=== PATIENT | female | born 1990 ===

== ENCOUNTER 2016-11-09 19:29 | Inpatient (IN) | payer OTHER ==
[2016-11-09 19:29] VITALS: BMI 28.6
[2016-11-09] MEDS ORDERED: Sodium Chloride 0.9% 1,000 ML IV ONE (20:26)
--- NOTE | 2016-11-09 20:28 | C.PDOC ---
History Of Present Illness 26 year old female with a Hx of sickle cell sent from [facility] for abnormal blood test results. Patient reports having mild generalized pain; denies fever, chills, nausea, or vomiting. Chief Complaint (Nursing): Medical Clearance History Per: Patient History/Exam Limitations: no limitations Onset/Duration Of Symptoms: Hrs Current Symptoms Are (Timing): Still Present Recent travel outside of the [place]: No Past Medical History Reviewed: Historical Data, Nursing Documentation, Vital Signs Vital Signs: Last Vital Signs Temp 99 F 11/09/16 19:42 Pulse 92 H 11/09/16 19:42 Resp 20 11/09/16 19:42 BP 106/66 11/09/16 19:42 Pulse Ox 96 11/09/16 22:46 - Medical History PMH: Anemia, Asthma, Diabetes, Sickle Cell Disease Surgical History: Cholecystectomy Family History: States: Unknown Family Hx - Social History Hx Tobacco Use: No Hx Alcohol Use: No Hx Substance Use: No - Immunization History Hx Tetanus Toxoid Vaccination: No Hx Influenza Vaccination: No Hx Pneumococcal Vaccination: No Review Of Systems Constitutional: Negative for: Fever, Chills Gastrointestinal: Negative for: Nausea, Vomiting Musculoskeletal: Positive for: Other (Mild generalized pain) Physical Exam - Physical Exam Appears: Non-toxic, No Acute Distress Skin: Warm, Dry, Jaundice (Slightly) Head: Atraumatic, Normacephalic Eye(s): bilateral: Conjunctiva Pale Oral Mucosa: Moist Neck: Normal, Supple Chest: Symmetrical, No Tenderness Cardiovascular: Rhythm Regular, No Murmur Respiratory: Normal Breath Sounds, No Rales, No Rhonchi, No Wheezing Gastrointestinal/Abdominal: Soft, No Tenderness Neurological/Psych: Oriented x3, Normal Speech, Normal Cognition ED Course And Treatment - Laboratory Results Result Diagrams: 11/09/16 20:44 11/09/16 20:44 O2 Sat by Pulse Oximetry: 96 (Room air) Pulse Ox Interpretation: Normal Progress Note: Blood work ordered. IV fluids administered. Discussed with Dr. Davis who request to admit under medicine. Discussed with Dr. Blake, medicine bridge/structure inspection team leader, will accept the patient for admission. Disposition Discussed With : Doc Blake Doctor Will See Patient In The: Hospital Counseled Patient/Family Regarding: Diagnosis - Disposition Referrals: Guero Davis MD [Staff Provider] - Disposition: HOSPITALIZED Disposition Time: 22:46 Condition: STABLE Forms: [facility] (Thai) - POA Present On Arrival: None - Clinical Impression Clinical Impression: Sickle cell anemia - Scribe Statement Rubio Ivey All medical record entries made by the Rubenibe were at my direction and personally dictated by me. I have reviewed the chart and agree that the record accurately reflects my personal performance of the history, physical exam, medical decision making, and the department course for this patient. I have also personally directed, reviewed, and agree with the discharge instructions and disposition.
[2016-11-09 20:52] LABS: EOS # 0.5 K/uL (0.0-0.7)
[2016-11-09 20:59] LABS: BASO # 0.2 K/uL (0.0-0.2); BASO % 1.5 % (0.0-2.0); EOS % 3.2 % (0.0-4.0); HEMATOCRIT 20.8 % (34.0-47.0); LYMPH # 2.9 K/uL (1.0-4.3); LYMPH % 18.9 % (20.0-40.0); MEAN CORPUSCULAR HEMOGLOBIN 38.9 pg (27.0-31.0); MEAN CORPUSCULAR HGB CONC 34.7 g/dL (33.0-37.0); MEAN PLATELET VOLUME 9.5 fL (7.2-11.7); MONO # 2.6 K/uL (0.0-0.8); MONO % 17.1 % (0.0-10.0); NRBC % 2.6 % (0.0-2.0); WHITE BLOOD COUNT 15.2 K/uL (4.8-10.8)
[2016-11-09 21:01] LABS: INR 1.3
[2016-11-09 21:05] LABS: CHLORIDE 103 mmol/L (98-107)
[2016-11-09 21:06] LABS: POTASSIUM 3.7 mmol/L (3.6-5.2); SODIUM 138 mmol/L (132-148)
[2016-11-09 21:08] LABS: ALB/GLOB RATIO 1.2 (1.0-2.1); AST/SGOT 55 U/L (14-36); BILIRUBIN,TOTAL 4.3 mg/dL (0.2-1.3); CARBON DIOXIDE 23 mmol/L (22-30); GFR AFRICAN-AMERICAN > 60; TOTAL PROTEIN 7.8 g/dL (6.3-8.3)
[2016-11-09 21:09] LABS: ALKALINE PHOSPHATASE 114 U/L (38-126); ALT/SGPT 47 U/L (9-52); BLOOD UREA NITROGEN 7 mg/dL (7-17); CALCIUM 8.8 mg/dl (8.6-10.4); GLUCOSE,RANDOM 92 mg/dL (65-105)
[2016-11-10] MEDS: Sodium Chloride 0.9% 1,000 ML IV SCH ×3 (05:01→17:45)
[2016-11-10] MEDS: Oxycodone/Acetaminophen 5/325 mg Tab PO PRN (05:02)
[2016-11-10] MEDS ORDERED: Oxycodone/Acetaminophen 5/325 mg Tab ONE (05:06)
[2016-11-10] MEDS ORDERED: Sodium Chloride 0.9% 1,000 ML ONE (07:25)
[2016-11-10 07:28] LABS: HEMATOCRIT 19.5 % (34.0-47.0); MEAN CORPUSCULAR HEMOGLOBIN 38.1 pg (27.0-31.0); MEAN CORPUSCULAR HGB CONC 34.3 g/dL (33.0-37.0); MEAN PLATELET VOLUME 8.9 fL (7.2-11.7); RED CELL DISTRIBUTION WIDTH 22.8 % (11.5-14.5); WHITE BLOOD COUNT 13.6 K/uL (4.8-10.8)
[2016-11-10 07:37] LABS: CHLORIDE 108 mmol/L (98-107); POTASSIUM 3.8 mmol/L (3.6-5.2); SODIUM 139 mmol/L (132-148)
[2016-11-10 07:39] LABS: GFR AFRICAN-AMERICAN > 60
[2016-11-10 07:40] LABS: ALB/GLOB RATIO 1.1 (1.0-2.1); ALKALINE PHOSPHATASE 108 U/L (38-126); ALT/SGPT 42 U/L (9-52); AST/SGOT 42 U/L (14-36); BILIRUBIN,TOTAL 3.5 mg/dL (0.2-1.3); BLOOD UREA NITROGEN 6 mg/dL (7-17); CARBON DIOXIDE 21 mmol/L (22-30); GLUCOSE,RANDOM 101 mg/dL (65-105); TOTAL PROTEIN 6.8 g/dL (6.3-8.3)
[2016-11-10 07:41] LABS: CALCIUM 8.3 mg/dl (8.6-10.4)
[2016-11-10] MEDS ORDERED: DiphenhydrAMINE 50 mg/ml Inj IVP STA (08:56)
--- NOTE | 2016-11-10 09:45 | RAD ---
HISTORY: admission/ sickle cell-anemia COMPARISON: Chest x-ray performed 03/14/16. TECHNIQUE: Chest PA and lateral FINDINGS: LUNGS: No focal consolidation. Please note that chest x-ray has limited sensitivity for the detection of pulmonary masses. PLEURA: Blunting of the posterior sulcus suggests small pleural effusion. No definite pneumothorax . CARDIOVASCULAR: Heart size appears top normal. OSSEOUS STRUCTURES: No acute osseous abnormality identified. VISUALIZED UPPER ABDOMEN: Unremarkable. OTHER FINDINGS: None. IMPRESSION: Blunting of the posterior sulcus suggests small pleural effusion.
[2016-11-10] MEDS ORDERED: DiphenhydrAMINE 50 mg/ml Inj ONE (11:57)
--- NOTE | 2016-11-10 19:21 | CON ---
HEMATOLOGY CONSULTATION HISTORY OF PRESENT ILLNESS: This is a 26-year-old woman with known sickle cell disease who comes in with severe anemia. The patient sickle cell. She was last admitted to the hospital in 03/2016 and received blood transfusions at that time. She is seen periodically by my associate, in the office. She was seen there about a month or 2 ago. She has been having increasing pains in her thighs recently and she was found in the clinic to have hemoglobin that was around 7 and she was told to come in to the hospital. She has no fever, no chest pain, no shortness of breath, but she does have those pains in her thighs. PHYSICAL EXAMINATION: SKIN: No petechia. No bruises. HEENT: Anicteric. LYMPHS: Nonpalpable in the axillary, cervical, supraclavicular and inguinal regions. LUNGS: Clear at present. No vertebral tenderness. HEART: S1, S2. ABDOMEN: Shows no liver or spleen. No tenderness. EXTREMITIES: No edema. CENTRAL NERVOUS SYSTEM: No focal findings. ASSESSMENT AND PLAN: The patient's hemoglobin today is 6.2, she has not been able to take count. She is about to get her menstruation, which she says lasts about 4 to 5 days and is relatively heavy. I asked that they transfuse the patient 1 unit of packed cells today and then we can reevaluate tomorrow. She is on folic acid and she also takes hydroxyurea. She is not clear whether it is 250 or 500 mg a day. Mostly today and tomorrow we will hold her off on hydroxyurea until after she gets her transfusions. Guero Davis MD
[2016-11-10 19:53] LABS: HEMATOCRIT 22.5 % (34.0-47.0); MEAN CELL VOLUME 106.5 fL (81.0-99.0); MEAN CORPUSCULAR HEMOGLOBIN 37.7 pg (27.0-31.0); MEAN CORPUSCULAR HGB CONC 35.4 g/dL (33.0-37.0); MEAN PLATELET VOLUME 9.4 fL (7.2-11.7); RED CELL DISTRIBUTION WIDTH 23.9 % (11.5-14.5); WHITE BLOOD COUNT 11.6 K/uL (4.8-10.8)
--- NOTE | 2016-11-10 23:07 | CP.PCM.HP ---
History of Present Illness - History of Present Illness History of Present Illness: 26 Y/O WITH SICKLE CELL DISEASE WAS ENT FROM CLINIC WITH LOW H AND H AND SHE HAS PAIN IN CHEST AND LOWER BACK, NO FEVER, NO SOB, NO COUGH Present on Admission - Present on Admission Any Indicators Present on Admission: No History of DVT/PE: No History of Uncontrolled Diabetes: No Urinary Catheter: No Decubitus Ulcer Present: No Review of Systems - Constitutional Constitutional: Anorexia, Chills - Cardiovascular Cardiovascular: Chest Pain at Rest - Gastrointestinal Gastrointestinal: Bloating - Musculoskeletal Musculoskeletal: Arthralgias - Endocrine Endocrine: Excessive Sweating, Fatigue Past Patient History - Past Medical History & Family History Past Medical History?: Yes - Past Social History Smoking Status: Never Smoked - CARDIAC Hx Hypertension: No - PULMONARY Hx Asthma: Yes - NEUROLOGICAL Hx Seizures: No - HEENT Hx HEENT Problems: No - RENAL Hx Chronic Kidney Disease: No - ENDOCRINE/METABOLIC Hx Endocrine Disorders: No - HEMATOLOGICAL/ONCOLOGICAL Hx Anemia: Yes Hx Sickle Cell Disease: Yes - INTEGUMENTARY Hx Dermatological Problems: No - MUSCULOSKELETAL/RHEUMATOLOGICAL Hx Falls: No Other/Comment: rt. knee radiate to the thigh - GASTROINTESTINAL Hx Gastrointestinal Disorders: No - GENITOURINARY/GYNECOLOGICAL Hx Sexually Transmitted Disorders: No - PSYCHIATRIC Hx Substance Use: No - SURGICAL HISTORY Hx Cholecystectomy: Yes - ANESTHESIA Hx Anesthesia: Yes Hx Anesthesia Reactions: No Hx Malignant Hyperthermia: No Meds Allergies/Adverse Reactions: Allergies Allergy/AdvReac Type Severity Reaction Status Date / Time sulfamethoxazole Allergy Mild RASH Verified 03/13/16 06:23 [From Bactrim] trimethoprim [From Bactrim] Allergy Mild RASH Verified 03/13/16 06:23 Physical Exam - Constitutional Appears: Non-toxic, No Acute Distress - Eye Exam Eye Exam: EOMI, Normal appearance, PERRL Pupil Exam: NORMAL ACCOMODATION - ENT Exam ENT Exam: Mucous Membranes Moist, Normal Exam - Neck Exam Neck exam: Positive for: Normal Inspection - Respiratory Exam Respiratory Exam: Clear to Auscultation Bilateral, NORMAL BREATHING PATTERN - Cardiovascular Exam Cardiovascular Exam: REGULAR RHYTHM, +S1, +S2 - GI/Abdominal Exam GI & Abdominal Exam: Normal Bowel Sounds - Rectal Exam Rectal Exam: NORMAL INSPECTION - Extremities Exam Extremities exam: Positive for: normal capillary refill, normal inspection, pedal pulses present - Back Exam Back exam: NORMAL INSPECTION - Neurological Exam Neurological exam: Alert, CN II-XII Intact, Normal Gait, Oriented x3, Reflexes Normal - Psychiatric Exam Psychiatric exam: Normal Mood - Skin Skin Exam: Dry, Intact Results - Vital Signs Recent Vital Signs: Last Vital Signs Temp 98.4 F 11/10/16 17:00 Pulse 80 11/10/16 17:00 Resp 20 11/10/16 17:00 BP 97/60 L 11/10/16 17:00 Pulse Ox 95 11/10/16 17:00 - Labs Result Diagrams: 11/10/16 19:38 11/10/16 07:23 Labs: Laboratory Results - last 24 hr 11/10/16 11/10/16 11/10/16 07:23 07:23 19:38 WBC 13.6 H 11.6 H RBC 1.75 L 2.11 L Hgb 6.7 L 8.0 L Hct 19.5 L 22.5 L MCV 111.0 H 106.5 H D MCH 38.1 H 37.7 H MCHC 34.3 35.4 RDW 22.8 H 23.9 H Plt Count 387 380 MPV 8.9 9.4 Differential Comment Sodium 139 Potassium 3.8 Chloride 108 H Carbon Dioxide 21 L Anion Gap 14 BUN 6 L Creatinine 0.4 L Est GFR ( Amer) > 60 Est GFR (Non-Af Amer) > 60 Random Glucose 101 Calcium 8.3 L Total Bilirubin 3.5 H AST 42 H D ALT 42 Alkaline Phosphatase 108 Total Protein 6.8 Albumin 3.6 Globulin 3.2 Albumin/Globulin Ratio 1.1 Assessment & Plan (1) Sickle cell anemia Status: Acute Priority: Medium (2) Sickle cell crisis Status: Acute Priority: High
[2016-11-11] MEDS: Sodium Chloride 0.9% 1,000 ML IV SCH ×4 (04:43→22:28)
[2016-11-11 07:26] LABS: BASO # 0.1 K/uL (0.0-0.2); BASO % 1.3 % (0.0-2.0); EOS # 0.6 K/uL (0.0-0.7); EOS % 5.3 % (0.0-4.0); HEMATOCRIT 22.9 % (34.0-47.0); LYMPH # 2.4 K/uL (1.0-4.3); LYMPH % 23.3 % (20.0-40.0); MEAN CORPUSCULAR HEMOGLOBIN 36.8 pg (27.0-31.0); MEAN CORPUSCULAR HGB CONC 34.7 g/dL (33.0-37.0); MEAN PLATELET VOLUME 9.4 fL (7.2-11.7); MONO # 1.8 K/uL (0.0-0.8); MONO % 17.6 % (0.0-10.0); NRBC % 3.3 % (0.0-2.0); RED CELL DISTRIBUTION WIDTH 23.8 % (11.5-14.5); WHITE BLOOD COUNT 10.5 K/uL (4.8-10.8)
--- NOTE | 2016-11-11 14:18 | CON ---
DATE: FOLLOWUP CONSULTATION HISTORY OF PRESENT ILLNESS: A 26-year-old woman with sickle cell anemia who was admitted for anemia and also for the pains in her both thighs. She is status post 1 unit of packed cells and today she is feeling much more comfortable in bed. PHYSICAL EXAMINATION: SKIN: No lesions. HEENT: Anicteric. LYMPH: Nodes are nonpalpable. LUNGS: Clear at present. No vertebral tenderness. The patient is able to lie flat in bed. HEART: S1 an d S2. ABDOMEN: Shows no liver, no spleen. No tenderness. EXTREMITIES: No edema. IN SERVICE EDUCATION TEACHER: No focal findings. PLAN: The patient states she is feeling better. Her pains have gone with the transfusion, so I told her that if everyone else is agreeable, she will be able to go home from my point of view. She knows to see Dr. Dunn next week in the office and she will go back on her Hydrea pills, as she normally takes them and she will see Dr. Dunn next week. Guero Davis MD
[2016-11-11] MEDS: Oxycodone/Acetaminophen 5/325 mg Tab PO PRN (18:43)
[2016-11-11] MEDS: Albuterol 0.083% Inhal Sol (2.5 mg/3 mL) UD INH SCH ×2 (20:10→20:11)
--- NOTE | 2016-11-11 22:29 | CP.PCM.PN ---
Subjective - Date & Time of Evaluation Date of Evaluation: 11/11/16 Time of Evaluation: 10:23 - Subjective Subjective: cough, congestion, and short of breath Objective - Vital Signs/Intake and Output Vital Signs (last 24 hours): Temp Pulse Resp BP Pulse Ox 99.3 F 83 20 111/69 95 11/11/16 16:00 11/11/16 20:17 11/11/16 16:00 11/11/16 16:00 11/11/16 16:00 Intake and Output: 11/11/16 11/12/16 18:59 06:59 Intake Total 1150 Balance 1150 - Medications Medications: Current Medications Albuterol Sulfate (Albuterol 0.083% Inhal Adrianna (2.5 Mg/3 Ml) Ud) 2.5 mg INH RQID [facility] Last Admin: 11/11/16 20:11 Dose: Not Given Folic Acid (Folic Acid) 1 mg PO DAILY [facility] Last Admin: 11/11/16 09:45 Dose: 1 mg Sodium Chloride (Sodium Chloride 0.9%) 1,000 mls @ 100 mls/hr IV .Q10H [facility] Last Admin: 11/11/16 11:33 Dose: 100 mls/hr Oxycodone/Acetaminophen (Percocet 5/325 Mg Tab) 2 tab PO Q4H PRN PRN Reason: Pain, moderate (4-7) Stop: 11/12/16 23:40 Last Admin: 11/11/16 18:43 Dose: 2 tab - Labs Labs: 11/11/16 07:05 11/10/16 07:23 PT 15.4 SECONDS (9.7-12.2) H 11/09/16 20:44 INR 1.3 11/09/16 20:44 APTT 29 SECONDS (21-34) 11/09/16 20:44 - Constitutional Appears: Non-toxic, No Acute Distress - Head Exam Head Exam: ATRAUMATIC, NORMAL INSPECTION, NORMOCEPHALIC - Eye Exam Eye Exam: EOMI, Normal appearance, PERRL Pupil Exam: NORMAL ACCOMODATION - ENT Exam ENT Exam: Mucous Membranes Moist, Normal Exam, Normal Oropharynx, TM's Normal Bilaterally - Respiratory Exam Respiratory Exam: Decreased Breath Sounds, Rhonchi - Cardiovascular Exam Cardiovascular Exam: REGULAR RHYTHM, +S1, +S2 - GI/Abdominal Exam GI & Abdominal Exam: Normal Bowel Sounds Assessment and Plan (1) Sickle cell anemia Status: Acute (2) Sickle cell crisis Status: Acute (3) Bronchial asthma Assessment & Plan: solumedrol,albuterl Status: Acute
[2016-11-12 07:41] VITALS: RESP 20
[2016-11-12] MEDS: Albuterol 0.083% Inhal Sol (2.5 mg/3 mL) UD INH SCH ×4 (07:50→19:04)
--- NOTE | 2016-11-12 09:11 | CON ---
HISTORY OF PRESENT ILLNESS: This is a 26-year-old woman with sickle cell disease. Her hemoglobin was 6.7 on admission. This has improved and gone up to 7.9 after one unit of pack cells. Her BUN is 5 and she is getting 100 mL worth of saline per hour, and she is getting more short of breath. PHYSICAL EXAMINATION: SKIN: No lesions. HEENT: Anicteric. LYMPH: Nodes are nonpalpable. LUNGS: Showed no wheezing, no rubs, no rales and no rhonchi. HEART: S1 and S2. ABDOMEN: Shows no liver, no spleen. No tenderness. EXTREMITIES: No edema. PLAN: However, the patient states that she is more short of breath today. She thought it was her asthma, but I do not think so, I do not really hear any wheezing. My suspicion is that she is possibly getting overhydrated. I will cut down the fluids and at this point if her breathing is not improving, we can give her one more unit of blood. However, first thing I would cut down the fluids and observe. Guero Davis MD
[2016-11-12 11:25] LABS: BASO # 0.1 K/uL (0.0-0.2); BASO % 1.1 % (0.0-2.0); EOS % 0.1 % (0.0-4.0); HEMATOCRIT 22.8 % (34.0-47.0); LYMPH % 9.8 % (20.0-40.0); MEAN CELL VOLUME 105.3 fL (81.0-99.0); MEAN CORPUSCULAR HEMOGLOBIN 37.4 pg (27.0-31.0); MEAN CORPUSCULAR HGB CONC 35.5 g/dL (33.0-37.0); MEAN PLATELET VOLUME 9.6 fL (7.2-11.7); MONO # 0.2 K/uL (0.0-0.8); MONO % 1.7 % (0.0-10.0); NRBC % 2.2 % (0.0-2.0); PLATELET COUNT 349 K/uL (130-400); RED CELL DISTRIBUTION WIDTH 22.3 % (11.5-14.5)
[2016-11-12 11:53] LABS: NEUTROPHIL 90 % (50-75); NUCLEATED RED BLOOD CELL 5 % (0-0); TOTAL CELLS COUNTED 100
[2016-11-12] MEDS: Sodium Chloride 0.9% 1,000 ML IV SCH (13:34)
--- NOTE | 2016-11-12 22:48 | CP.PCM.PN ---
Subjective - Date & Time of Evaluation Date of Evaluation: 11/12/16 - Subjective Subjective: NO SOB, LESS CHEST PAIN Objective - Vital Signs/Intake and Output Vital Signs (last 24 hours): Temp Pulse Resp BP Pulse Ox 98.1 F 90 20 102/56 L 95 11/12/16 15:00 11/12/16 15:00 11/12/16 15:00 11/12/16 15:00 11/12/16 15:00 Intake and Output: 11/12/16 11/13/16 18:59 06:59 Intake Total 1200 Balance 1200 - Medications Medications: Current Medications Albuterol Sulfate (Albuterol 0.083% Inhal Adrianna (2.5 Mg/3 Ml) Ud) 2.5 mg INH RQID [facility] Last Admin: 11/12/16 19:04 Dose: 2.5 mg Folic Acid (Folic Acid) 1 mg PO DAILY [facility] Last Admin: 11/12/16 09:45 Dose: 1 mg Sodium Chloride (Sodium Chloride 0.9%) 1,000 mls @ 100 mls/hr IV .Q10H [facility] Last Admin: 11/12/16 13:34 Dose: Not Given Oxycodone/Acetaminophen (Percocet 5/325 Mg Tab) 2 tab PO Q4H PRN PRN Reason: Pain, moderate (4-7) Stop: 11/12/16 23:40 Last Admin: 11/11/16 18:43 Dose: 2 tab - Labs Labs: 11/12/16 11:15 11/10/16 07:23 PT 15.4 SECONDS (9.7-12.2) H 11/09/16 20:44 INR 1.3 11/09/16 20:44 APTT 29 SECONDS (21-34) 11/09/16 20:44 - Constitutional Appears: Non-toxic, No Acute Distress - Head Exam Head Exam: ATRAUMATIC, NORMAL INSPECTION, NORMOCEPHALIC - Eye Exam Eye Exam: EOMI, Normal appearance, PERRL Pupil Exam: NORMAL ACCOMODATION - ENT Exam ENT Exam: Mucous Membranes Moist, Normal Exam - Neck Exam Neck Exam: Normal Inspection - Respiratory Exam Respiratory Exam: Clear to Ausculation Bilateral, NORMAL BREATHING PATTERN - Cardiovascular Exam Cardiovascular Exam: REGULAR RHYTHM, +S1, +S2 - GI/Abdominal Exam GI & Abdominal Exam: Soft, Normal Bowel Sounds - Rectal Exam Rectal Exam: NORMAL INSPECTION - Extremities Exam Extremities Exam: Full ROM, Normal Capillary Refill, Normal Inspection - Back Exam Back Exam: NORMAL INSPECTION - Neurological Exam Neurological Exam: Alert, Awake, CN II-XII Intact, Normal Gait, Oriented x3 Neuro motor strength exam: Left Upper Extremity: 5, Right Upper Extremity: 5, Left Lower Extremity: 5, Right Lower Extremity: 5 - Psychiatric Exam Psychiatric exam: Normal Mood - Skin Skin Exam: Intact Assessment and Plan (1) Sickle cell anemia Status: Acute (2) Sickle cell crisis Status: Acute (3) Bronchial asthma Status: Acute
[2016-11-13] MEDS: Albuterol 0.083% Inhal Sol (2.5 mg/3 mL) UD INH SCH ×2 (07:05→12:20)
[2016-11-13 07:48] VITALS: BP 108/57; PULSE 82; TEMP 98; O2SAT 97
[2016-11-13 09:24] LABS: BASO # 0.2 K/uL (0.0-0.2); BASO % 1.1 % (0.0-2.0); EOS # 0.2 K/uL (0.0-0.7); EOS % 1.2 % (0.0-4.0); HEMATOCRIT 21.2 % (34.0-47.0); LYMPH # 3.7 K/uL (1.0-4.3); LYMPH % 25.5 % (20.0-40.0); MEAN CELL VOLUME 104.6 fL (81.0-99.0); MEAN CORPUSCULAR HEMOGLOBIN 36.1 pg (27.0-31.0); MEAN CORPUSCULAR HGB CONC 34.5 g/dL (33.0-37.0); MEAN PLATELET VOLUME 9.3 fL (7.2-11.7); MONO # 2.2 K/uL (0.0-0.8); RED CELL DISTRIBUTION WIDTH 20.3 % (11.5-14.5); WHITE BLOOD COUNT 14.5 K/uL (4.8-10.8)
--- NOTE | 2016-11-13 12:01 | CP.PCM.PN ---
Subjective - Date & Time of Evaluation Date of Evaluation: 11/13/16 Time of Evaluation: 12:01 - Subjective Subjective: Alert, orientedx3, no acute pain. Objective - Vital Signs/Intake and Output Vital Signs (last 24 hours): Temp Pulse Resp BP Pulse Ox 98.0 F 82 20 108/57 L 97 11/13/16 07:47 11/13/16 07:47 11/13/16 07:47 11/13/16 07:47 11/13/16 07:47 Intake and Output: 11/13/16 11/13/16 06:59 18:59 Intake Total 850 800 Balance 850 800 - Medications Medications: Current Medications Albuterol Sulfate (Albuterol 0.083% Inhal Adrianna (2.5 Mg/3 Ml) Ud) 2.5 mg INH RQID [facility] Last Admin: 11/13/16 07:05 Dose: 2.5 mg Folic Acid (Folic Acid) 1 mg PO DAILY [facility] Last Admin: 11/13/16 09:30 Dose: 1 mg - Labs Labs: 11/13/16 09:12 11/10/16 07:23 PT 15.4 SECONDS (9.7-12.2) H 11/09/16 20:44 INR 1.3 11/09/16 20:44 APTT 29 SECONDS (21-34) 11/09/16 20:44 Assessment and Plan - Assessment and Plan (Free Text) Assessment: patient is seen and examined. Alert and orientedx3, NAD. Denies acute pain or distress. D/W DR Blake, discharge plan for today. Advised to follow up with PMD in 1 week.
--- NOTE | 2016-11-13 22:36 | CON ---
DATE: SUBJECTIVE: This is a 26-year-old woman with sickle-cell anemia. The patient is doing far better today. The IV fluids were decreased yesterday and she is now in bed, she sits more comfortably. PHYSICAL EXAMINATION: GENERAL: She is able to lie flat. LUNGS: There are no rhonchi, no rales, no wheezing, no rubs lungs. HEART: Her heart rate is down to 82 and regular. ABDOMEN: No tenderness, no organomegaly. EXTREMITIES: No edema. ASSESSMENT AND PLAN: At this point, hemoglobin is stable at about 8.2 and she is relatively asymptomatic. She knows to come to the office next week and follow up with Dr. Christa Dunn. Guero MD Susan
--- NOTE | 2016-11-13 23:28 | CP.PCM.DIS ---
Provider - Provider Date of Admission: 11/09/16 22:47 Attending physician: Doc Blake MD Diagnosis - Discharge Diagnosis (1) Sickle cell anemia Status: Acute Priority: Medium (2) Sickle cell crisis Status: Acute Priority: High (3) Bronchial asthma Status: Acute Hospital Course - Lab Results Lab Results: Most Recent Lab Values WBC 14.5 K/uL (4.8-10.8) H 11/13/16 09:12 RBC 2.03 Mil/uL (3.80-5.20) L 11/13/16 09:12 Hgb 7.3 g/dL (11.0-16.0) L 11/13/16 09:12 Hct 21.2 % (34.0-47.0) L 11/13/16 09:12 MCV 104.6 fL (81.0-99.0) H 11/13/16 09:12 MCH 36.1 pg (27.0-31.0) H 11/13/16 09:12 MCHC 34.5 g/dL (33.0-37.0) 11/13/16 09:12 RDW 20.3 % (11.5-14.5) H 11/13/16 09:12 Plt Count 318 K/uL (130-400) 11/13/16 09:12 MPV 9.3 fL (7.2-11.7) 11/13/16 09:12 Neut % (Auto) 57.2 % (50.0-75.0) 11/13/16 09:12 Lymph % (Auto) 25.5 % (20.0-40.0) 11/13/16 09:12 Bucks % (Auto) 15.0 % (0.0-10.0) H 11/13/16 09:12 Eos % (Auto) 1.2 % (0.0-4.0) 11/13/16 09:12 Baso % (Auto) 1.1 % (0.0-2.0) 11/13/16 09:12 Neut # 8.3 K/uL (1.8-7.0) H 11/13/16 09:12 Lymph # 3.7 K/uL (1.0-4.3) 11/13/16 09:12 Bucks # 2.2 K/uL (0.0-0.8) H 11/13/16 09:12 Eos # 0.2 K/uL (0.0-0.7) 11/13/16 09:12 Baso # 0.2 K/uL (0.0-0.2) 11/13/16 09:12 Neutrophils % (Manual) 90 % (50-75) H 11/12/16 11:15 Band Neutrophils % 3 % (0-2) H 11/12/16 11:15 Lymphocytes % (Manual) 6 % (20-40) L 11/12/16 11:15 Monocytes % (Manual) 1 % (0-10) 11/12/16 11:15 Nucleated RBC % 5 % (0-0) H 11/12/16 11:15 Differential Comment 11/10/16 07:23 Platelet Estimate Normal (NORMAL) 11/12/16 11:15 Poikilocytosis (manual Slight 11/12/16 11:15 Anisocytosis (manual) Moderate 11/12/16 11:15 Macrocytosis (manual) Moderate 11/12/16 11:15 Sickle Cells Moderate 11/12/16 11:15 Target Cells Slight 11/12/16 11:15 Retic Count 19.9 % (0.5-1.5) H 11/09/16 20:45 Sickle Cell Screen Positive (NEGATIVE) H 11/09/16 20:44 Hemoglobinopathy Red Blood Count TNP 11/09/16 20:44 Hemoglobinopathy Hct TNP 11/09/16 20:44 Hemoglobinopathy Hgb TNP 11/09/16 20:44 Hemoglobinopathy MCV TNP 11/09/16 20:44 Hemoglobinopathy MCH TNP 11/09/16 20:44 Hemoglobinopathy RDW TNP 11/09/16 20:44 PT 15.4 SECONDS (9.7-12.2) H 11/09/16 20:44 INR 1.3 11/09/16 20:44 APTT 29 SECONDS (21-34) 11/09/16 20:44 Sodium 139 mmol/L (132-148) 11/10/16 07:23 Potassium 3.8 mmol/L (3.6-5.2) 11/10/16 07:23 Chloride 108 mmol/L (98-107) H 11/10/16 07:23 Carbon Dioxide 21 mmol/L (22-30) L 11/10/16 07:23 Anion Gap 14 (10-20) 11/10/16 07:23 BUN 6 mg/dL (7-17) L 11/10/16 07:23 Creatinine 0.4 MG/DL (0.7-1.2) L 11/10/16 07:23 Est GFR ( Amer) > 60 11/10/16 07:23 Est GFR (Non-Af Amer) > 60 11/10/16 07:23 Random Glucose 101 mg/dL (65-105) 11/10/16 07:23 Calcium 8.3 mg/dl (8.6-10.4) L 11/10/16 07:23 Total Bilirubin 3.5 mg/dL (0.2-1.3) H 11/10/16 07:23 AST 42 U/L (14-36) H D 11/10/16 07:23 ALT 42 U/L (9-52) 11/10/16 07:23 Alkaline Phosphatase 108 U/L (38-126) 11/10/16 07:23 Total Protein 6.8 g/dL (6.3-8.3) 11/10/16 07:23 Albumin 3.6 g/dL (3.5-5.0) 11/10/16 07:23 Globulin 3.2 gm/dL (2.2-3.9) 11/10/16 07:23 Albumin/Globulin Ratio 1.1 (1.0-2.1) 11/10/16 07:23 Blood Type O POSITIVE 11/09/16 20:44 Antibody Screen Positive 11/09/16 20:44 Antibody Identification Anti D 11/09/16 20:44 - Hospital Course Hospital Course: 26 y/o aaf with sickle cell disease CAME WITH LBP, CHEST WALL PAIN, AND DROP IN H/H, SHE ALSO HAD ASTHMA EXACERBATION AND SHE WAS TREATED STABILIZED AND DISCHARGED Discharge Exam - Head Exam Head Exam: ATRAUMATIC, NORMAL INSPECTION, NORMOCEPHALIC - Eye Exam Eye Exam: EOMI, Normal appearance, PERRL Pupil Exam: NORMAL ACCOMODATION - ENT Exam ENT Exam: Mucous Membranes Moist, Normal Exam, Normal Oropharynx, TM's Normal Bilaterally - Neck Exam Neck exam: Normal Inspection - Respiratory Exam Respiratory Exam: Rhonchi, NORMAL BREATHING PATTERN - Cardiovascular Exam Cardiovascular Exam: REGULAR RHYTHM, +S1, +S2 - GI/Abdominal Exam GI & Abdominal Exam: Normal Bowel Sounds - Rectal Exam Rectal Exam: NORMAL INSPECTION - Neurological Exam Neurological exam: Alert, CN II-XII Intact, Normal Gait, Oriented x3, Reflexes Normal - Psychiatric Exam Psychiatric exam: Normal Mood - Skin Skin Exam: Intact Discharge Plan - Discharge Medications Prescriptions: Albuterol Sulfate [Proventil Hfa] 0.09 mg IH QID PRN #1 PRN Reason: Wheezing - Follow Up Plan Condition: STABLE Disposition: HOME/ ROUTINE Instructions: Albuterol (By breathing), Asthma (DC), Sickle Cell Anemia (DC) Referrals: Guero Davis MD [Staff Provider] -
== END 2016-11-13 15:40 | disposition home or self-care (01) | DRG 395 ==
LOC: C.ER 19:29 → C.9E 22:47 → C.3T 11-10 16:39
PROVIDERS: ADMIT Internal Medicine; ATTEND Internal Medicine
PROC: 30233N1 Transfusion of Nonautologous Red Blood Cells into Peripheral Vein, Percutaneous Approach (ICD-10-PCS; principal; 2016-11-10)
DX: D57.00 Hb-SS disease with crisis, unspecified (principal); J45.901 Unspecified asthma with (acute) exacerbation; E87.70 Fluid overload, unspecified; Z90.49 Acquired absence of other specified parts of digestive tract

== ENCOUNTER 2016-11-30 08:32 | Emergency (ER) | payer OTHER ==
[2016-11-30 08:32] VITALS: BMI 28.6
[2016-11-30 08:46] VITALS: RESP 18
--- NOTE | 2016-11-30 08:53 | C.PDOC ---
History Of Present Illness 26F c/o pain and swelling in her right arm since she had a PICC removed 6 days ago. She is unable to completely straighten her arm. she had line initially only for a couple days placed during last admission for blood transfusion. Time Seen by Provider: 11/30/16 08:49 Chief Complaint (Nursing): Upper Extremity Problem/Injury Past Medical History Vital Signs: Last Vital Signs Temp 98.3 F 11/30/16 13:06 Pulse 86 11/30/16 13:06 Resp 18 11/30/16 13:06 BP 100/56 L 11/30/16 13:06 Pulse Ox 99 11/30/16 16:20 - Medical History PMH: Anemia, Asthma, Diabetes, Sickle Cell Disease Denies: Hepatitis, HIV, HTN, Chronic Kidney Disease, Seizures, Sexually Transmitted Disease Surgical History: Cholecystectomy - [facility] Procedures TRANSFUSE NONAUT RED BLOOD CELLS IN PERIPH VEIN, PERC (11/09/16) Family History: States: Other Other Family History: nc - Social History Hx Tobacco Use: No Hx Alcohol Use: No Hx Substance Use: No - Immunization History Hx Tetanus Toxoid Vaccination: No Hx Influenza Vaccination: No Hx Pneumococcal Vaccination: No Review Of Systems Except As Marked, All Systems Reviewed And Found Negative. Constitutional: Negative for: Fever Cardiovascular: Negative for: Chest Pain Respiratory: Negative for: Cough, Shortness of Breath Gastrointestinal: Negative for: Vomiting, Abdominal Pain Neurological: Negative for: Weakness, Numbness Physical Exam - Physical Exam Appears: Well, Non-toxic, No Acute Distress Skin: Warm, Dry Head: Atraumatic Eye(s): bilateral: PERRL Nose: No Epistaxis Oral Mucosa: Moist Neck: Normal ROM Cardiovascular: Rhythm Regular Respiratory: No Decreased Breath Sounds, No Accessory Muscle Use Extremity: Other (tenderness and some swelling just distral to previous picc site. no warmth or erythema. full flexion but unable to fully extend right elbow. ) Pulses: Left Radial: Normal, Right Radial: Normal Neurological/Psych: Oriented x3, Normal Motor, Normal Sensation, Other (no focal deficits) ED Course And Treatment - Laboratory Results Result Diagrams: 11/30/16 09:39 11/30/16 09:39 O2 Sat by Pulse Oximetry: 99 (room air ) Progress Note: Venous doppler was negative for DVT and postive for superficial thrombosis. Medical Decision Making Medical Decision Making: gordon hernandez physician balloon sander for dr peck, Dr Butler- can see for f/u this week disc w heme-onc balloon sander Dr Garcia- agrees w plan- no abx or anticoag at this time, f/u outpt Disposition - Disposition Referrals: Bandar Peck MD [Medical Doctor] - Disposition: HOME/ ROUTINE Disposition Time: 13:08 Condition: STABLE Additional Instructions: Please follow up with your doctor this week. Return to the ER for any worsening symptoms or for any other concerns. Forms: [employer] (Faroese), Work Excuse - Clinical Impression Clinical Impression: Superficial venous thrombosis of arm
[2016-11-30 09:45] LABS: BASO # 0.3 K/uL (0.0-0.2); EOS # 0.5 K/uL (0.0-0.7)
[2016-11-30 09:50] LABS: BASO % 1.8 % (0.0-2.0); EOS % 3.3 % (0.0-4.0); HEMATOCRIT 20.3 % (34.0-47.0); LYMPH % 25.8 % (20.0-40.0); MEAN CORPUSCULAR HEMOGLOBIN 37.5 pg (27.0-31.0); MEAN CORPUSCULAR HGB CONC 32.9 g/dL (33.0-37.0); MEAN PLATELET VOLUME 9.2 fL (7.2-11.7); MONO # 2.5 K/uL (0.0-0.8); NRBC % 22.6 % (0.0-2.0); RED CELL DISTRIBUTION WIDTH 29.7 % (11.5-14.5); WHITE BLOOD COUNT 15.5 K/uL (4.8-10.8)
[2016-11-30 09:52] LABS: MEAN CELL VOLUME 113.9 fL (81.0-99.0)
[2016-11-30 09:54] LABS: INR 1.4
[2016-11-30 10:06] LABS: CHLORIDE 106 mmol/L (98-107); POTASSIUM 3.9 mmol/L (3.6-5.2); SODIUM 146 mmol/L (132-148)
[2016-11-30 10:08] LABS: ALKALINE PHOSPHATASE 167 U/L (38-126); ALT/SGPT 31 U/L (9-52); AST/SGOT 45 U/L (14-36); BILIRUBIN,TOTAL 3.2 mg/dL (0.2-1.3); BLOOD UREA NITROGEN 7 mg/dL (7-17); CARBON DIOXIDE 27 mmol/L (22-30); GFR AFRICAN-AMERICAN > 60; TOTAL PROTEIN 7.9 g/dL (6.3-8.3)
[2016-11-30 10:09] LABS: GLUCOSE,RANDOM 109 mg/dL (65-105)
[2016-11-30 13:06] VITALS: BP 100/56; PULSE 86; TEMP 98.3
[2016-11-30 13:11] VITALS: O2SAT 99
--- NOTE | 2016-12-01 10:49 | VASCLAB ---
PROCEDURE: Right Upper Extremity Venous Duplex Exam HISTORY: swelling and pain after PiCC removal PRIORS: None. TECHNIQUE: Right upper extremity, internal jugular, subclavian, axillary, brachial, ulnar, radial, basilic and upper cephalic veins were evaluated. Flow was assessed with color Doppler, compressibility, assessment of phasic flow and augmentation response. Report prepared by PARMJIT Salas, RVT FINDINGS: RIGHT: 1. Internal Jugular: 1.1. Compressibility - Fully compressible: Thrombus - None : Flow - Phasic: Augmentation -Normal: Reflux - None. 2. Subclavian: 2.1. Compressibility - Fully compressible: Thrombus - None : Flow - Phasic: Augmentation -Normal: Reflux - None. 3. Axillary: 3.1. Compressibility - Fully compressible: Thrombus - None : Flow - Phasic: Augmentation -Normal: Reflux - None. 4. Brachial: 4.1. Compressibility - Fully compressible: Thrombus - None: Flow - Phasic: Augmentation -Normal: Reflux - None. 5. Ulnar: 5.1. Compressibility - Fully compressible: Thrombus - None: Flow - Phasic: Augmentation -Normal: Reflux - None. 6. Radial: 6.1. Compressibility - Fully compressible: Thrombus - None: Flow - Phasic: Augmentation - Normal: Reflux - None. 7. Cephalic: 7.1. Compressibility - Fully compressible: Thrombus - None: Flow - Phasic: Augmentation -Normal: Reflux - None. 8. Basilic: 8.1. Compressibility - Partial: Thrombus - Acute: Flow - Absent : Augmentation -None: Reflux - None. OTHER FINDINGS: Right: Dr. Villafana notified about the findings. IMPRESSION: Right: Acute thrombosis of the right basilic vein with severe reduction of the venous return. Normal venous flow noted in the left internal jugular and left subclavian veins.
== END 2016-11-30 13:12 | disposition home or self-care (01) ==
LOC: C.ER 08:32
DX: I82.611 Acute embolism and thrombosis of superficial veins of right upper extremity (principal)

== ENCOUNTER 2018-04-20 12:31 | Outpatient (CLI) | payer OTHER | END 2018-04-20 12:32 | disposition home or self-care (01) | LOC: C.CTH 12:31 | DX: D57.1 Sickle-cell disease without crisis (principal) ==

== ENCOUNTER 2018-05-24 07:59 | Outpatient (CLI) | payer OTHER | END 2018-05-24 08:00 | disposition home or self-care (01) | LOC: C.USIC 08:00 | DX: R16.0 Hepatomegaly, not elsewhere classified (principal) ==